=== PATIENT | male | born 1965 | race Caucasian/White ===

== ENCOUNTER 2016-09-09 16:15 | Emergency (ER) | payer MEDICAID ==
[2016-09-09] MEDS ORDERED: Silver Nitrate 1 Swab TP ONE ×2 (17:51→18:00)
--- NOTE | 2016-09-09 18:16 | ED Physician Chart ---
Chief Complaint/HPI - Patient Information Date Seen:: 09/09/16 Time Seen:: 17:00 Chief Complaint:: laceration left large toe History of Present Illness:: wearing leather shoes cut left large toe about 1 1/2 hr ago. Allergies:: Allergies Allergy/AdvReac Type Severity Reaction Status Date / Time No Known Allergies Allergy Verified 09/09/16 16:39 Vitals:: Vital Signs - 8 hr 09/09/16 16:30 Temp 98.1 F HR 100 RR 20 BP 145/94 O2 Sat % 96 Historian:: Patient Review:: Nurse's Note Reviewed Review of Systems - Review of Systems General/Constitutional: No fever, No chills Skin: Skin lesions Head: No headache Eyes: No loss of vision ENT: No earache Neck: No neck pain, No swelling Cardio Vascular: No chest pain Pulmonary: No SOB GI: No nausea, No vomiting G/U: No dysuria Musculoskeletal: No bone or joint pain Psychiatric: No prior psych history, No depression Hematopoietic: No bruising Allergic/Immuno: No urticaria Neurological: No syncope Past Medical History - Past Medical History Past Medical History: No significant medical hx Family History: None Social History: Smoker, No Alcohol Surgical History: None Psychiatricy History: None Medication: None Family Medical History - Family Member Mother History Unknown: Yes Physical Exam - Physical Examination General/Constitutional: Well-developed, well-nourished, Alert Head: Atraumatic Eyes: Lids, conjuctiva normal Skin: No rash, No ecchymosis ENMT: External ears, nose nl Neck: No nuchal rigidity Respiratory: Nl effort/Exclusion Cardio Vascular: RRR GI: No tenderness/rebounding/guarding, No organomegaly, No hernia, Normal BS's : No CVA tenderness Other Extremities comments:: left large toe: 2 x 1 cm x about 3 mm deep avulsion of dorsal tip (including distal nail). Neuro/Psych: No focal deficits Assessment Comments: skin cleanse with betadine solution; 1% xylocaine for digital block; AgNO3 sticks x2 to stop oozing of blood from 3-4 sites; pressure dressing with 1/2 steristrips and 2 inch soiel ED Septic Shock - . Is Septic Shock (SBP<90, OR Lactate>4 mmol\L) present?: No - <6hrs of presentation: Vital Signs: Vital Signs - 8 hr 09/09/16 16:30 Temp 98.1 F HR 100 RR 20 BP 145/94 O2 Sat % 96 Reassessment (Disposition) - Reassessment Reassessment Condition:: Improved - Diagnosis Diagnosis:: Avulsion tip left large toe - Aftercare/Follow up Instructions Aftercare/Follow-Up Instructions:: Refer to Discharge Instructions - Patient Disposition Discharge/Transfer:: Home Condition at Disposition:: Stable, Improved
[2016-09-09] MEDS ORDERED: [UNRECOGNIZED DRUG - OTHER] IM ONE (18:22)
== END 2016-09-09 18:50 | disposition home or self-care (01) ==
LOC: ER 16:15
DX: S91.112A Laceration without foreign body of left great toe without damage to nail, initial encounter (principal); F17.200 Nicotine dependence, unspecified, uncomplicated; W45.8XXA Other foreign body or object entering through skin, initial encounter; Y93.89 Activity, other specified; Y92.89 Other specified places as the place of occurrence of the external cause; Y99.8 Other external cause status
CPT/HCPCS: J2001; X7704; Z7502; Z7610